=== PATIENT | female | born 2000 | race Caucasian/White ===

== ENCOUNTER 2023-04-21 13:57 | Emergency (ER) | payer OTHER ==
[~2023-04-21] VITALS: Ht 177.8 cm; Wt 59.0 kg
[2023-04-21 14:13] VITALS: BP 121/70; PULSE 98; RESP 14; TEMP 98.5; O2SAT 100
[2023-04-21 14:25] VITALS: O2SAT 98
[2023-04-21] MEDS ORDERED: ALBE200T13 PO (14:58)
[2023-04-21 15:04] VITALS: BP 117/79; PULSE 81; RESP 14; TEMP 98.5
[2023-04-21 17:26] VITALS: O2SAT 98
== END 2023-04-21 15:04 | disposition home or self-care (01) ==
LOC: MED 13:57
DX: L08.9 Local infection of the skin and subcutaneous tissue, unspecified (principal)
CPT/HCPCS: 81025; 99282